=== PATIENT | male | born 1995 | race Caucasian/White ===

== ENCOUNTER 2024-07-13 14:36 | Emergency (ER) | payer OTHER ==
[~2024-07-13] VITALS: Ht 193 cm; Wt 142.7 kg
[2024-07-13] MEDS ORDERED: OXYCODONE/APAP 5/325 TAB PO ONE (16:30)
[2024-07-13] MEDS ORDERED: ONDANSETRON 4 MG TAB ODT SL ONE (16:30)
[2024-07-13 17:03] LABS: BASOPHILS 0.5 % (0-2); EOSINOPHILS 2.1 % (0-6); HEMATOCRIT 42.8 % (35.0-50.0); HEMOGLOBIN 14.5 g/dL (12.0-18.0); LYMPHOCYTES 17.4 % (24-44); MCH 29.8 (27-36); MCHC 33.9 g/dl (30-36); PLATELET COUNT 262 K/uL (140-440); RBC 4.87 M/ul (4.3-5.7); RDW 13.3 (10.5-15.0)
[2024-07-13 17:14] LABS: INR 1.12 (0.80-1.30); PARTIAL THROMBOPLASTIN TIME 25.8 Sec (22.9-41.3); PROTIME 13.6 Sec (11.2-14.2)
[2024-07-13 17:18] LABS: ALBUMIN 3.6 g/dL (3.4-5.0); ALBUMIN/GLOBULIN RATIO 0.95 (1.1-2.4); ANION GAP 11.8 (7-21); BUN/CREATININE RATIO 10.57 (6.0-28.6); CREATININE, SERUM 1.04 mg/dL (0.70-1.30); POTASSIUM 3.8 mmol/L (3.5-5.1); PROTEIN, TOTAL 7.4 g/dL (6.4-8.2)
[2024-07-13] MEDS ORDERED: APIXABAN 5 MG TAB PO ONE (17:30)
[2024-07-13] MEDS ORDERED: ELIQUIS5 M1 PO (18:29)
[2024-07-13 18:43] VITALS: BP 127/80
== END 2024-07-13 18:44 | disposition home or self-care (01) ==
LOC: ED 14:36
PROVIDERS: Emergency Medicine
DX: I82.422 Acute embolism and thrombosis of left iliac vein (principal); I82.4Z2 Acute embolism and thrombosis of unspecified deep veins of left distal lower extremity
CPT/HCPCS: 36415; 80053; 85025; 85610; 85730; 93971; 99284-25; A9270

== ENCOUNTER 2025-01-28 01:56 | Emergency (ER) | payer OTHER ==
[~2025-01-28] VITALS: Ht 193 cm; Wt 150.0 kg
[~2025-01-28 01:56] MED LIST: ELIQUIS5 M1 PO
[2025-01-28] MEDS ORDERED: NEOMYCIN/POLYMYXIN/HYDROCORT 10 ML HOME.PACK OTIC ONE (02:30)
[2025-01-28 02:34] VITALS: BP 163/110
[2025-01-29] MEDS ORDERED: AMOXICILLIN875 MG PO (01:29)
== END 2025-01-28 02:35 | disposition home or self-care (01) ==
LOC: ED 01:56
DX: H60.92 Unspecified otitis externa, left ear (principal); Z79.899 Other long term (current) drug therapy
CPT/HCPCS: 99282

== ENCOUNTER 2025-01-29 01:22 | Emergency (ER) | payer OTHER ==
[~2025-01-29] VITALS: Ht 193 cm; Wt 143.0 kg
--- OUTSIDE RECORDS SUMMARY | 2025-01-29 01:28 | XMS ---
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 E.D. VISIT COUNT (12 MO.) 3 [facility] TOTAL 3 NOTE: Visits indicate total known visits. ED/UCC VISIT TRACKING (12 MO.) 01/29/2025 01:22 [facility] TYPE: Emergency COMPLAINT: - EARACHE 01/28/2025 01:58 [facility] [place] TYPE: Emergency COMPLAINT: - EARACHE 07/13/2024 14:[address] [facility] [place] TYPE: Emergency COMPLAINT: - LEFT THIGH PAIN DIAGNOSES: - Acute embolism and thrombosis of left iliac vein - Acute embolism and thrombosis of unspecified deep veins of left distal lower extremity - Pain in left thigh INPATIENT VISIT TRACKING (12 MO.) No inpatient visits to display in this time frame [email or web address]
[2025-01-29] MEDS ORDERED: AMOXICILLIN875 MG PO (01:29)
[2025-01-29] MEDS ORDERED: AMOXICILLIN 500 MG HOME.PACK PO ONE (01:30)
[2025-01-29 01:48] VITALS: BP 156/96
== END 2025-01-29 01:45 | disposition home or self-care (01) ==
LOC: ED 01:22
DX: H60.91 Unspecified otitis externa, right ear (principal); H66.91 Otitis media, unspecified, right ear; Z79.899 Other long term (current) drug therapy
CPT/HCPCS: 99282